=== PATIENT | male | born 1950 | race Caucasian/White ===

== ENCOUNTER 2017-06-12 12:24 | Observation (INO) ==
[2017-06-12 12:54] LABS: Basophils # 0.1 K/mcL (0.0-0.2); Basophils % 0.6 %; Eosinophils # 0.2 K/mcL (0.0-0.6); Eosinophils % 2.2 %; Hematocrit 39.1 % (37.5-50.1); Immature Granulocytes % 0.3 % (0-4); Lymphocytes # 1.5 K/mcL (0.6-4.6); Lymphocytes % 17.5 %; Mean Corpuscular HGB Conc 30.7 g/dL (31.6-35.5); Mean Corpuscular Hemoglobin 26.4 pg (28.0-33.3); Mean Corpuscular Volume 86.1 fL (83.0-100.0); Mean Platelet Volume 8.8 fL (9.4-12.4); Monocytes # 0.8 K/mcL (0.0-1.3); Monocytes % 9.2 %; Neutrophils # 6.1 K/mcL (1.6-8.9); Platelet Count 282 K/mcL (140-400); Red Blood Count 4.54 M/mcL (4.19-5.50); Red Cell Distribution Width 15.1 % (11.5-14.5); Segmented Neutrophils % 70.2 %
[2017-06-12 13:06] LABS: Prothrombin Time 10.2 Seconds (9.4-12.1)
[2017-06-12 13:08] LABS: Activated Partial Thrombo Time 26.8 Seconds (26.0-36.0)
[2017-06-12 13:22] LABS: BUN/Creatinine Ratio 21 (6-26); Blood Urea Nitrogen 21 mg/dL (8-23); Calcium 9.6 mg/dL (8.6-10.3); Carbon Dioxide 31 mEq/L (23-29); Chloride 104 mEq/L (98-107); Glucose 91 mg/dL (70-105); Osmolality,Calculated 293 (280-300); Potassium 4.3 mEq/L (3.5-5.1); Sodium 140 mEq/L (136-145); eGFR For African Americans > 60 (> 60); eGFR For Non-African Americans > 60 (> 60)
--- NOTE | 2017-06-12 13:37 | Emergency Department Note ---
Disposition Clinical Impression: TIA (transient ischemic attack) Qualifiers: Transient cerebral ischemia type: unspecified Qualified Code(s): G45.9 - Transient cerebral ischemic attack, unspecified Disposition: Admitted As Inpatient Condition: Fair Referrals: iT Bolaños MD [Primary Care Provider] - Forms: ED Satisfaction Letter Time of Disposition: 13:54 General Adult HPI - General Chief complaint: ED Neuro Symptoms/Deficit Stated complaint: Neuro S/Sx Time Seen by Provider: 06/12/17 12:42 Source: patient Mode of arrival: ambulatory Limitations: no limitations Nursing Notes Reviewed: Yes Vital Signs Reviewed: Yes - History of Present Illness HPI Narrative: Patient is a 66-year-old male presenting by squad with a complaint of left- sided facial weakness that was first noticed at 5:30 AM this morning. According to the squad the patient's states that she noticed that the patient had left-sided facial weakness and the patient's other relative present in the home states he had a slow speech. Patient is denying any other symptoms such as headache, vision changes, focal neurological deficits to the extremities , loss of sensation, or loss of strength. Denies being on blood thinners at this time however he is taking at 325 mg aspirin daily due to right knee surgery. Pain Scale: 3 - Related Data Home Medications Medication Instructions Recorded Confirmed Amitriptyline [Elavil] 25 mg PO BID 04/21/15 05/23/17 Eletriptan HBr [Relpax] 40 mg PO AD PRN 04/21/15 05/23/17 Metformin HCl [Glucophage Xr] 750 mg PO QPM 04/21/15 05/23/17 Multivitamin/Iron/Folic Acid 1 tab PO QAM 04/21/15 05/23/17 [Centrum Complete Multivit Tab] [place]-3/Dha/Epa/Fish Oil [Fish Oil 1,000 mg PO BID 08/16/15 05/23/17 Dr 500 mg Softgel] Omeprazole [PriLOSEC] 20 mg PO BID 08/16/15 05/23/17 Exenatide Microspheres [Bydureon] 2 mg SQ SA 01/03/16 05/23/17 Simvastatin [Zocor] 20 mg PO QPM 01/03/16 05/23/17 Allopurinol [Zyloprim 100 MG] 100 mg PO DAILY 02/14/17 05/23/17 Turmeric Root Extract [Turmeric] 500 mg PO DAILY 02/14/17 05/23/17 Ascorbate Calcium [Vitamin C] 500 mg PO DAILY 05/23/17 05/23/17 Aspirin [Lo-Dose Aspirin EC] 81 mg PO DAILY 05/23/17 05/23/17 Cyanocobalamin (Vitamin B-12) 100 mcg PO DAILY 05/23/17 05/23/17 [Vitamin B-12] DULoxetine [Cymbalta] 30 mg PO DAILY 05/23/17 05/23/17 Ferrous Sulfate [Iron] 325 mg PO DAILY 05/23/17 05/23/17 Losartan Potassium [Cozaar] 50 mg PO DAILY 05/23/17 05/23/17 Tizanidine HCl [Zanaflex] 2 mg PO HS PRN 05/23/17 05/23/17 Previous Rx's Medication Instructions Recorded Aspirin Enteric Coated [Aspirin EC] 325 mg PO BID #20 tablet. 05/23/17 OxyCODONE Immed Rel [Roxicodone 5 5 mg PO Q4HR PRN #24 tablet 05/23/17 MG] Allergies Allergy/AdvReac Type Severity Reaction Status Date / Time tramadol AdvReac Itching Verified 05/23/17 07:12 Narcotics AdvReac Itching Uncoded 04/21/15 19:44 All systems ED: reviewed and negative except as stated. Review of Systems: As Per HPI Constitutional: Denies: fever, chills Eyes: Denies: vision change ENT ED: Denies: throat pain, congestion Cardiovascular: Denies: chest pain, palpitations Respiratory: Denies: cough, dyspnea, wheezes Gastrointestinal: Denies: abdominal pain Genitourinary: Denies: dysuria Musculoskeletal: Denies: back pain, neck pain Neurological: Reports: other (left sided facial droop). Denies: headache, weakness, numbness, paresthesias, confusion, abnormal gait Past Medical History - Past Medical History Attestation: Yes The following information was validated with the patient. Medical history: Reports: arthritis, diabetes, GERD, hyperlipidemia, hypertension, kidney stones, migraine Surgical history: Reports: appendectomy, other Psychiatric history: Reports: no psych history - Social History Smoking Status: Former smoker Smokeless Tobacco Status: No Alcohol use: Reports: occasionally Drug use: Reports: none Physical Exam CONSTITUTIONAL: Alert and oriented X3, well-nourished, well appearing, in no apparent distress HEAD: Normocephalic; atraumatic. EYES: PERRL, no scleral icterus. NOSE: The nose is normal in appearance without rhinorrhea RESP: Normal chest excursion with respiration; breath sounds clear and equal bilaterally; no wheezes, rhonchi, or rales CARD: Regular rhythm, without murmurs, rub or gallop ABD: Non-distended; non-tender, soft,without rigidity, rebound or guarding SKIN: Normal for age and race; warm and dry; no apparent lesions NEUROLOGICAL: Patient is alert and oriented times three. Cranial nerves III- XII are intact, except for facial droop on the left side mostly affecting left side of mouth. Sensory and motor functions are intact. Strength is 5/5 for flexion and extension in all 4 extremities. Patellar DTRS are equal and intact. Finger to nose testing is equal and normal bilaterally. No other focal neurological deficits on exam. - General Limitations: no limitations General appearance: alert, in no apparent distress Course Course Narrative: Patient presented with last known well being 5:30 AM this morning with complaining of left-sided face drooping affecting his speech. His symptoms appear to have been improving over time. Stroke alert was called patient was brought back to the emergency department immediately. Plan is to do a stroke workup of the patient will consult neurology. Patient's NIH stroke scale score for me is a one due to the patient's very mild left sided mouth paralysis. RICU telecom was performed and Dr. Garland the neurologist for [facility] evaluated the patient gave him an NIH stroke scale of 0. She recommended admission for TIA workup. Patient is not a candidate for TPA at this time due to his improving status and also the length of time since last known well. - Reevaluation(s) Reevaluation #1: I discussed the patient's case with the neurologist manager of organizational development Dr. Hand discussed admission to the hospital for TIA. He recommended starting Plavix at this time and decrease in the patient's daily aspirin from 325 mg to 81 mg. He agrees to consult on the case and they will admit the patient to the hospitalist manager of organizational development Dr. Curtis. Time: 13:45 Reevaluation #2: Dr. Curtis agrees to accept the patient. Time: 13:49 Vital Signs Temperature 97.8 F 06/12/17 12:26 Pulse Rate 75 06/12/17 12:26 Respiratory Rate 18 06/12/17 12:26 Blood Pressure 162/89 06/12/17 12:26 O2 Sat by Pulse Oximetry 98 06/12/17 12:26 Temperature 97.8 F 06/12/17 12:26 Pulse Rate 77 06/12/17 13:33 Respiratory Rate 16 06/12/17 13:33 Blood Pressure 145/84 06/12/17 13:33 O2 Sat by Pulse Oximetry 98 06/12/17 12:26 Oxygen Delivery Oxygen Delivery Room Air Medical Decision Making - Medical Records Medical records reviewed: Yes I reviewed the patient's medical records. - Lab Data Lab results reviewed: Yes I reviewed the patient's lab results. Result diagrams: 06/12/17 12:46 06/12/17 12:46 Lab Results 06/12/17 06/12/17 06/12/17 Range/Units 12:27 12:46 12:46 WBC 8.7 (4.3-11.1) K/mcL RBC 4.54 (4.19-5.50) M/mcL Hgb 12.0 L (12.9-16.9) g/dL Hct 39.1 (37.5-50.1) % MCV 86.1 (83.0-100.0) fL MCH 26.4 L (28.0-33.3) pg MCHC 30.7 L (31.6-35.5) g/dL RDW 15.1 H (11.5-14.5) % Plt Count 282 (140-400) K/mcL MPV 8.8 L (9.4-12.4) fL Immature Gran % 0.3 (0-4) % Seg Neutrophils % 70.2 % Lymphocytes % 17.5 % Monocytes % 9.2 % Eosinophils % 2.2 % Basophils % 0.6 % Neutrophils # 6.1 (1.6-8.9) K/mcL Lymphocytes # 1.5 (0.6-4.6) K/mcL Monocytes # 0.8 (0.0-1.3) K/mcL Eosinophils # 0.2 (0.0-0.6) K/mcL Basophils # 0.1 (0.0-0.2) K/mcL PT 10.2 (9.4-12.1) Seconds INR 1.0 APTT 26.8 (26.0-36.0) Seconds Sodium (136-145) mEq/L Potassium (3.5-5.1) mEq/L Chloride (98-107) mEq/L Carbon Dioxide (23-29) mEq/L BUN (8-23) mg/dL Creatinine (0.70-1.30) mg/dL Est GFR ( Amer) (> 60) Est GFR (Non-Af Amer) (> 60) BUN/Creatinine Ratio (6-26) Glucose (70-105) mg/dL POC Glucose 91 H (58-89) Calculated Osmolality (280-300) Calcium (8.6-10.3) mg/dL Troponin I (< 0.04) ng/mL 06/12/17 06/12/17 Range/Units 12:46 12:46 WBC (4.3-11.1) K/mcL RBC (4.19-5.50) M/mcL Hgb (12.9-16.9) g/dL Hct (37.5-50.1) % MCV (83.0-100.0) fL MCH (28.0-33.3) pg MCHC (31.6-35.5) g/dL RDW (11.5-14.5) % Plt Count (140-400) K/mcL MPV (9.4-12.4) fL Immature Gran % (0-4) % Seg Neutrophils % % Lymphocytes % % Monocytes % % Eosinophils % % Basophils % % Neutrophils # (1.6-8.9) K/mcL Lymphocytes # (0.6-4.6) K/mcL Monocytes # (0.0-1.3) K/mcL Eosinophils # (0.0-0.6) K/mcL Basophils # (0.0-0.2) K/mcL PT (9.4-12.1) Seconds INR APTT (26.0-36.0) Seconds Sodium 140 (136-145) mEq/L Potassium 4.3 (3.5-5.1) mEq/L Chloride 104 (98-107) mEq/L Carbon Dioxide 31 H (23-29) mEq/L BUN 21 (8-23) mg/dL Creatinine 0.98 (0.70-1.30) mg/dL Est GFR ( Amer) > 60 (> 60) Est GFR (Non-Af Amer) > 60 (> 60) BUN/Creatinine Ratio 21 (6-26) Glucose 91 (70-105) mg/dL POC Glucose (58-89) Calculated Osmolality 293 (280-300) Calcium 9.6 (8.6-10.3) mg/dL Troponin I < 0.03 (< 0.04) ng/mL - Radiology Data Radiology results reviewed: Yes I reviewed the patient's radiology results. Head CT 06/12/17 12:42 IMPRESSION: No acute intracranial abnormality. Findings were discussed with Judith Barbour at 1:05 pm on 06/12/2017. D/ / Kylee Barragan MD / Kylee Barragan MD Interpreting Provider: Kylee Barragan MD - EKG Data EKG #1 EKG attestation: Yes I reviewed and interpreted this EKG. EKG results narrative: EKG done at 12:57 shows sinus rhythm at a rate of 67 bpm. Normal axis. AK is 157, QRS is 106, QT is 375, and QTc is 390 these are within normal limits. No signs of ST elevation, depression or Q waves and this is unchanged when compared to EKG done on 05/17/2017.
--- NOTE | 2017-06-12 13:39 | Emergency Department Note ---
START Narrative - START START: I examined this patient and my medical decision-making was reviewed with the Resident Physician. I agree with the documented findings, disposition and treatment plan as described except to the extent set forth below. Patient emergency department complaining of slurred speech and facial droop. After nurses spoke with the family it appears as last time was about 5:30 this morning. Patient states he feels like his speech is also little bit. On examination he is awake and alert. He does have some mild slurring but he does not have any aphasia. Mild droop of the mouth that corrects with smile. Plan. Stroke alert was called and telestroke performed. Patient TPA candidate secondary to mild symptoms. We will admit here for further stroke workup.
[2017-06-12] MEDS: *HR* OxyCODONE Immed Rel 5 MG TABLET PO PRN (20:11)
--- NOTE | 2017-06-12 20:18 | Internal Med History&Physical ---
<Polly Castañeda - Last Filed: 06/12/17 20:52> Date of Encounter: 06/12/17 Time of Encounter: 20:09 Assessment and Plan (1) TIA (transient ischemic attack) Current visit: Yes Status: Acute The patient's last well known was at 530am today. Patient stated that his noted that he had slurred speech and left facial weakness at around 8am this morning. Patient is comfortable and in no distress. He denies any weakness or numbness or tingling. The patient does not have any slurred speech on exam. Neurological exam is normal and intact. Head CT is negative and showed no acute intracranial abnormalities. Dr. Garland the neurologist for [facility] evaluated the patient gave him an NIH stroke scale of 0. She recommended admission for TIA workup. Patient is not a candidate for TPA at this time due to his improving status and also the length of time since last known well.The neurologist international bank manager , Dr. Hand, recommends Plavix at this time and to decrease in the patient's daily aspirin from 325 mg to 81 mg. Time spent on admission: 40 minutes. Qualifiers: Transient cerebral ischemia type: unspecified Qualified Code(s): G45.9 - Transient cerebral ischemic attack, unspecified (2) Hypertension Current visit: No Status: Chronic Continue home medications. Qualifiers: Hypertension type: unspecified secondary hypertension Qualified Code(s): I15.9 - Secondary hypertension, unspecified; I15 - Secondary hypertension (3) Diabetes Current visit: No Status: Chronic Qualifiers: Diabetes mellitus type: type 2 Diabetes mellitus complication status: without complication Diabetes mellitus emt intermediate insulin use: unspecified snf insulin use status Qualified Code(s): E11.9 - Type 2 diabetes mellitus without complications (4) Status post right knee replacement Current visit: No Status: Acute Internal Medicine - H&P: HPI Chief complaint: Left facial weakness and slurred speech Admitted From: Emergency Dept History of present illness: Mr. Cuadra is a 66 year old male with a past medical history of hypertension , diabetes, and a total right knee surgery on May 23 who presents complaining of left facial weakness and slurred speech per and family. The patient states that he woke up around 5:30 AM this morning to take his morning medications without any difficulty. The patient said that around 8 am this morning was when his told him he had slurred speech. He stated that he did not notice anything wrong with his speech but admitted that he "felt drunk" because he felt "wobbly" with his cane. He denies any facial weakness at the time but he said his noticed it. Patient admits stacking the recent total right knee surgery on May 23 without any competitions. The patient was prescribed 325 mg of aspirin and pain medications. Patient denies any recent trauma, illness, or travel. He denies any headaches, vision changes , facial weakness, chest pain, shortness of breath, abdominal pain, difficulty urinating, any changes in his bowel movements, and any numbness or tingling, and any weaknesses. Past Med Surg Social Fam HX - Past Medical History Medical history: arthritis, diabetes (Non-insulin dependent), GERD, hyperlipidemia, hypertension, kidney stones, migraine Psychiatric history: no psych history - Past Surgical History Surgical History: appendectomy, other - Social History Smoking Status: Former smoker Smokeless Tobacco Status: No Alcohol use: occasionally Drug use: none - Family History Father Living Status: Internal Medicine - H&P: Meds Amitriptyline [Elavil] 25 mg PO BID 04/21/15 [History] Eletriptan HBr [Relpax] 40 mg PO AD PRN 04/21/15 [History] Metformin HCl [Glucophage Xr] 750 mg PO QPM 04/21/15 [History] Multivitamin/Iron/Folic Acid [Centrum Complete Multivit Tab] 1 tab PO QAM [History] [place]-3/Dha/Epa/Fish Oil [Fish Oil Dr 500 mg Softgel] 1,000 mg PO BID 08/16/15 [ History] Omeprazole [PriLOSEC] 20 mg PO BID 08/16/15 [History] Exenatide Microspheres [Bydureon] 2 mg SQ SA 01/03/16 [History] Simvastatin [Zocor] 20 mg PO QPM 01/03/16 [History] Allopurinol [Zyloprim 100 MG] 100 mg PO DAILY PRN 02/14/17 [History] Turmeric Root Extract [Turmeric] 500 mg PO DAILY 02/14/17 [History] Ascorbate Calcium [Vitamin C] 500 mg PO DAILY 05/23/17 [History] Aspirin Enteric Coated [Aspirin EC] 325 mg PO BID #20 tablet. 05/23/17 [Rx] Cyanocobalamin (Vitamin B-12) [Vitamin B-12] 100 mcg PO DAILY 05/23/17 [History] DULoxetine [Cymbalta] 30 mg PO DAILY 05/23/17 [History] Ferrous Sulfate [Iron] 325 mg PO DAILY 05/23/17 [History] Losartan Potassium [Cozaar] 50 mg PO DAILY 05/23/17 [History] OxyCODONE Immed Rel [Roxicodone 5 MG] 5 mg PO Q4HR PRN #24 tablet 05/23/17 [Rx] Tizanidine HCl [Zanaflex] 2 mg PO HS PRN 05/23/17 [History] 3 Allergy/AdvReac Type Severity Reaction Status Date / Time tramadol AdvReac Itching Verified 06/12/17 14:01 Narcotics AdvReac Itching Uncoded 04/21/15 19:44 All Systems PM: A 10-system review of systems was performed and is negative for pertinent findings except as documented above in the HPI. - Constitutional Vitals: Temp Pulse Resp BP Pulse Ox 98.1 F 79 16 155/82 98 06/12/17 19:01 06/12/17 19:01 06/12/17 19:01 06/12/17 19:01 06/12/17 19:01 General appearance: Present: A&O X 3, pleasant. Absent: no acute distress - Head Head exam: Present: atraumatic, normocephalic - Eye Eye exam: Present: EOMI, normal appearance, PERRL. Absent: conjunctival injection Pupils: Present: PERRL - Neck Neck exam general surgery: Present: supple, trachea midline. Absent: lymphadenopathy, tenderness - Respiratory Respiratory exam: Present: CTAB. Absent: accessory muscle use, rales, rhonchi, wheezes - Cardiovascular Cardiovascular exam: Present: RRR, +S1, +S2. Absent: diastolic murmur, gallop, rubs, systolic murmur - GI/Abdominal GI/Abdominal exam: Present: normal bowel sounds, soft, no peritoneal signs. Absent: distended, tenderness - Extremities Exam Extremities exam: Present: warm, radial pulses palpable and symmetrical. Absent : calf tenderness, cyanotic, pedal edema - Neurological Exam Neurological exam: Present: alert, CN II-XII intact, oriented X3, no focal deficits, strengths equal and symetr throughout. Absent: motor sensory deficit , pronater drift, facial droop, speech deficit - Expanded Neurological Exam Neurological exam expanded: Present: tremor (mild tremor in upper extremities on exam. ). Absent: expressive aphasia Patient oriented to: Present: person, place, time Speech: Absent: slurred Cranial Nerves: EOM's intact PM: Normal, gag reflex PM: Normal, tongue deviation PM: Normal Cerebellar function: finger to nose: Normal Neuro motor strength exam: LUE: 5, RUE: 5, LLE: 5, RLE: 5 - Skin Skin exam: Present: dry, intact Internal Med - H&P Results - Labs CBC & Chem 7: 06/12/17 12:46 06/12/17 12:46 <Tj Bates H - Last Filed: 06/12/17 21:07> Date of Encounter: 06/12/17 Internal Medicine - H&P: HPI History of present illness: Mr. Cuadra is a 66 year old male All Systems PM: A 10-system review of systems was performed and is negative for pertinent findings except as documented above in the HPI. - Constitutional Vitals: Temp Pulse Resp BP Pulse Ox 98.1 F 79 16 155/82 98 06/12/17 19:01 06/12/17 19:01 06/12/17 19:01 06/12/17 19:01 06/12/17 19:01 Internal Med - H&P Results - Labs CBC & Chem 7: 06/12/17 12:46 06/12/17 12:46 - Attending Attestation Possible TIA MRI of the brain, echocardiogram, carotid ultrasound, lipid panel, subcutaneous heparin for DVT prophylaxis. Patient will be admitted for observation Neurology recommendations appreciated Continue simvastatin I examined this patient and my medical decision-making was reviewed with the Resident Physician. I agree with the documented findings, disposition and treatment plan as described except to the extent set forth below.
[2017-06-12] MEDS ORDERED: Acetaminophen 325 MG TABLET PO PRN (20:27)
[2017-06-12] MEDS ORDERED: Ondansetron ODT 4 MG TAB.RAPDIS SL PRN (20:27)
[2017-06-12] MEDS ORDERED: Naloxone 0.4 MG/ML INJ IVP PRN (20:27)
[2017-06-12] MEDS ORDERED: *HR* OxyCODONE Immed Rel 5 MG TABLET PO PRN (20:30)
[2017-06-12] MEDS ORDERED: Eletriptan Hbr [Relpax] 40 MG PO PRN (20:30)
[2017-06-12] MEDS ORDERED: tiZANidine 4 MG TABLET PO PRN (20:30)
[2017-06-12] MEDS ORDERED: D5% in Water 1,000 ML IVC PRN (20:46)
[2017-06-12] MEDS ORDERED: *HR* Dextrose 50 % in Water (Syg) 50 ML SYRINGE IVP PRN (20:46)
[2017-06-12] MEDS ORDERED: Dextrose Gel 15 GM/37.5 ML TUBE PO PRN ×2 (20:46)
[2017-06-12] MEDS: *HR* Heparin 5,000 UNIT/ML VIAL SQ SCH (22:34)
[2017-06-12] MEDS: Insulin LISPRO 300 UNITS/3 ML VIAL SQ SCH (22:36)
[2017-06-12] MEDS: FISH OIL 1000 MG PO SCH (22:36)
[2017-06-13] MEDS: *HR* OxyCODONE Immed Rel 5 MG TABLET PO PRN ×5 (00:06→22:19)
[2017-06-13] MEDS: *HR* Heparin 5,000 UNIT/ML VIAL SQ SCH ×2 (05:34→17:37)
[2017-06-13 05:52] LABS: Basophils % 0.5 %; Eosinophils # 0.2 K/mcL (0.0-0.6); Eosinophils % 2.8 %; Hematocrit 36.8 % (37.5-50.1); Hemoglobin 11.6 g/dL (12.9-16.9); Immature Granulocytes % 0.5 % (0-4); Lymphocytes # 1.4 K/mcL (0.6-4.6); Lymphocytes % 22.5 %; Mean Corpuscular HGB Conc 31.5 g/dL (31.6-35.5); Mean Corpuscular Hemoglobin 26.3 pg (28.0-33.3); Mean Corpuscular Volume 83.4 fL (83.0-100.0); Mean Platelet Volume 9.2 fL (9.4-12.4); Monocytes # 0.6 K/mcL (0.0-1.3); Neutrophils # 3.8 K/mcL (1.6-8.9); Platelet Count 300 K/mcL (140-400); Red Blood Count 4.41 M/mcL (4.19-5.50); Red Cell Distribution Width 14.6 % (11.5-14.5); Segmented Neutrophils % 63.7 %
[2017-06-13 05:57] LABS: Activated Partial Thrombo Time 27.9 Seconds (26.0-36.0)
[2017-06-13 06:05] LABS: BUN/Creatinine Ratio 17 (6-26); Blood Urea Nitrogen 17 mg/dL (8-23); Calcium 9.6 mg/dL (8.6-10.3); Carbon Dioxide 34 mEq/L (23-29); Chloride 100 mEq/L (98-107); Glucose 83 mg/dL (70-105); Osmolality,Calculated 291 (280-300); Phosphorous 4.5 mg/dL (2.7-4.5); Potassium 4.1 mEq/L (3.5-5.1); Sodium 140 mEq/L (136-145); eGFR For African Americans > 60 (> 60); eGFR For Non-African Americans > 60 (> 60)
[2017-06-13 06:06] LABS: Chol/HDL Ratio 3.4 (0-4.9)
[2017-06-13] MEDS: Insulin LISPRO 300 UNITS/3 ML VIAL SQ SCH ×4 (07:35→22:16)
[2017-06-13] MEDS: FISH OIL 1000 MG PO SCH ×2 (09:25→22:19)
[2017-06-13] MEDS: Ascorbic Acid 500 MG TABLET PO SCH (09:25)
[2017-06-13] MEDS: Turmeric Root Extract [Turmeric] 500 MG PO SCH (09:25)
[2017-06-13] MEDS: Aspirin 81 MG TAB.CHEW PO SCH (09:25)
[2017-06-13] MEDS: CYANOCOBALAMIN 100 MCG PO SCH (09:25)
[2017-06-13] MEDS: Multivit/Ca/Min/Fe/FA 1 TAB TABLET PO SCH (09:25)
--- NOTE | 2017-06-13 10:39 | Neurology - Consult Note ---
<Glen Yarbrough - Last Filed: 06/13/17 11:36> Date of Encounter: 06/13/17 Time of Encounter: 10:36 Assessment and Plan (1) TIA (transient ischemic attack) Current Visit: Yes Status: Acute patient arrived with facial drooping and slurred speech that has since resolved. was evaluated by [facility] neurology, and determined not to be a TPA candidate due to unknown duration of symptoms and improvement of symptoms prelim carotid duplex: non stenotic plaque. Head CT negative lipid panel reviewed Plan: continue ASA, plavix, statin MRI brain pending his 10 year ASCVD risk is 26%, recommend a high intensity statin Qualifiers: Transient cerebral ischemia type: unspecified Qualified Code(s): G45.9 - Transient cerebral ischemic attack, unspecified (2) Hypertension Current Visit: No Status: Chronic per primary Qualifiers: Hypertension type: essential hypertension Qualified Code(s): I10 - Essential (primary) hypertension (3) Diabetes Current Visit: No Status: Chronic per primary Qualifiers: Diabetes mellitus type: type 2 Diabetes mellitus complication status: without complication Diabetes mellitus exterminator helper insulin use: unspecified exterminator helper insulin use status Qualified Code(s): E11.9 - Type 2 diabetes mellitus without complications History of Present Illness Chief complaint: facial drooping, slurred speech. HPI: Mr. Cuadra is a 66 year old male with PMHx of DM, HTN, recent right total knee replacement on May 23, GERD, HLD. patient was brought to [facility] yesterday by his with chief complaint of slurred speech and facial drooping since earlier that morning. patient also states that he felt "drunk" and "wobbly." He was evaluated by neurology at [facility] and it was determined that he is not a candidate for TPA because of unknown duration of symptoms and improving status. today, patient denies nausea, vomiting, diarrhea, fever, chills, chest pain, shortness of breath, weakness. Past Med Surg Social Fam HX - Past Medical History Medical history: arthritis, diabetes (Non-insulin dependent), GERD, hyperlipidemia, hypertension, kidney stones, migraine Psychiatric history: no psych history - Past Surgical History Surgical History: appendectomy, other - Social History Smoking Status: Former smoker Smokeless Tobacco Status: No Alcohol use: occasionally Drug use: none - Family History Father Living Status: Medications and Allergies Amitriptyline [Arronl] 25 mg PO BID 04/21/15 [History] Eletriptan HBr [Relpax] 40 mg PO AD PRN 04/21/15 [History] Metformin HCl [Glucophage Xr] 750 mg PO QPM 04/21/15 [History] Multivitamin/Iron/Folic Acid [Centrum Complete Multivit Tab] 1 tab PO QAM [History] [place]-3/Dha/Epa/Fish Oil [Fish Oil Dr 500 mg Softgel] 1,000 mg PO BID 08/16/15 [ History] Omeprazole [PriLOSEC] 20 mg PO BID 08/16/15 [History] Exenatide Microspheres [Bydureon] 2 mg SQ SA 01/03/16 [History] Simvastatin [Zocor] 20 mg PO QPM 01/03/16 [History] Allopurinol [Zyloprim 100 MG] 100 mg PO DAILY PRN 02/14/17 [History] Turmeric Root Extract [Turmeric] 500 mg PO DAILY 02/14/17 [History] Ascorbate Calcium [Vitamin C] 500 mg PO DAILY 05/23/17 [History] Aspirin Enteric Coated [Aspirin EC] 325 mg PO BID #20 tablet.dr 05/23/17 [Rx] Cyanocobalamin (Vitamin B-12) [Vitamin B-12] 100 mcg PO DAILY 05/23/17 [History] DULoxetine [Cymbalta] 30 mg PO DAILY 05/23/17 [History] Ferrous Sulfate [Iron] 325 mg PO DAILY 05/23/17 [History] Losartan Potassium [Cozaar] 50 mg PO DAILY 05/23/17 [History] OxyCODONE Immed Rel [Roxicodone 5 MG] 5 mg PO Q4HR PRN #24 tablet 05/23/17 [Rx] Tizanidine HCl [Zanaflex] 2 mg PO HS PRN 05/23/17 [History] 3 Allergy/AdvReac Type Severity Reaction Status Date / Time tramadol AdvReac Itching Verified 06/12/17 14:01 Narcotics AdvReac Itching Uncoded 04/21/15 19:44 All Systems: A 10-system review of systems was performed and is negative for pertinent findings except as documented above in the HPI. - Constitutional Constitutional ROS IM: as per HPI Physical Examination - Vital Signs Vital Signs: Initial Vital Signs Temp Pulse Resp BP Pulse Ox 97.8 F 75 18 162/89 98 06/12/17 12:26 06/12/17 12:26 06/12/17 12:26 06/12/17 12:06/12/17 12:26 - Constitutional General appearance: comfortable - Neurologic Sensorimotor examination: intact Detailed motor examination: grossly full strength in all extremities Motor examination - right side: 5/5: deltoids, biceps, triceps, wrist flexion, wrist extension, harvesting supervisor, tibialis Anterior, quadriceps Motor examination - left side: 5/5: deltoids, biceps, triceps, wrist flexion, wrist extension, harvesting supervisor, quadriceps Detailed sensory examination: intact Reflexes: Brachioradialis: 2+, Patella: 2+ (right patellar reflex not checked due to recent knee surgery), Achilles: 2+ Mental Status Examination: awake, alert, oriented to person, oriented to place, oriented to time, follows commands appropriately, answers questions appropriately, no aphasia Cranial nerve examination: PERRL, visual negron intact, corneal reflexes brisk symmetrically, mastication intact, hearing is intact symmetrically Results - Laboratory Findings CBC and BMP: 06/13/17 05:11 06/13/17 05:11 Abnormal lab findings: Abnormal lab results Hgb 11.6 g/dL (12.9-16.9) L 06/13/17 05:11 Hct 36.8 % (37.5-50.1) L 06/13/17 05:11 MCH 26.3 pg (28.0-33.3) L 06/13/17 05:11 MCHC 31.5 g/dL (31.6-35.5) L 06/13/17 05:11 RDW 14.6 % (11.5-14.5) H 06/13/17 05:11 MPV 9.2 fL (9.4-12.4) L 06/13/17 05:11 Carbon Dioxide 34 mEq/L (23-29) H 06/13/17 05:11 Triglycerides 198 mg/dL (< 150) H 06/13/17 05:11 VLDL Cholesterol, Calc 40 mg/dL (< 31) H 06/13/17 05:11 Consult Discharge Plan - Plan Referrals: Ti Bolaños MD [Primary Care Provider] - <Tameka Hand I - Last Filed: 06/13/17 16:45> Date of Encounter: 06/13/17 Assessment and Plan (1) CVA (cerebral vascular accident) Current Visit: Yes Status: Acute Patient was seen and examined, presented with left facial droop and slurring of the speech on examination today he still have left facial droop and slurring of the speech is improved no focal motor deficit. With his history of hypertension hyperlipidemia likely he has suffered a new CVA , he has been evaluated by [facility] telestroke services due to unknown onset of the time of symptoms he was not a TPA candidate. Patient will be getting complete a stroke workup including MRI of the brain, carotid duplex as well as echocardiogram He had been on an aspirin suggested to add Plavix 75 mg daily and decrease aspirin to 81 mg daily. Continue to monitor his blood pressure and blood sugar He should be on fall precautions May benefit from physical therapy evaluation do not do not think that he would require any long-term rehabilitation due to the fact that he did not have any focal motor deficit on his exam. Tameka Hand MD History of Present Illness HPI: Mr. Cuadra is a 66 year old male All Systems: A 10-system review of systems was performed and is negative for pertinent findings except as documented above in the HPI. Physical Examination - Vital Signs Vital Signs: Initial Vital Signs Temp Pulse Resp BP Pulse Ox 97.8 F 75 18 162/89 98 06/12/17 12:26 06/12/17 12:26 06/12/17 12:26 06/12/17 12:26 06/12/17 12:26 Results - Laboratory Findings CBC and BMP: 06/13/17 05:11 06/13/17 05:11 Abnormal lab findings: Abnormal lab results Hgb 11.6 g/dL (12.9-16.9) L 06/13/17 05:11 Hct 36.8 % (37.5-50.1) L 06/13/17 05:11 MCH 26.3 pg (28.0-33.3) L 06/13/17 05:11 MCHC 31.5 g/dL (31.6-35.5) L 06/13/17 05:11 RDW 14.6 % (11.5-14.5) H 06/13/17 05:11 MPV 9.2 fL (9.4-12.4) L 06/13/17 05:11 Carbon Dioxide 34 mEq/L (23-29) H 06/13/17 05:11 POC Glucose 149 (58-89) H 06/13/17 15:30 Triglycerides 198 mg/dL (< 150) H 06/13/17 05:11 VLDL Cholesterol, Calc 40 mg/dL (< 31) H 06/13/17 05:11
--- NOTE | 2017-06-13 10:40 | Electrocardiograph Report ---
[facility] Test Date: 2017-06-12 Pat Name: Delano Cuadra Department: [id number] Room: 3B35 Gender: M Legislative Assistant: : [id number] Requested By: Judith See Order Number: [id number] Reading MD: Ti Bolaños MD Measurements Intervals [place] Rate: 67 P: 53 MS: 157 QRS: 20 QRSD: 106 T: 50 QT: 375 QTc: 390 Interpretive Statements SINUS RHYTHM WITH SINUS ARRHYTHMIA Electronically Signed On 06-13-2017 10:38:16 EST by Ti Bolaños MD
--- NOTE | 2017-06-13 17:26 | Orthopedic Consult Note ---
Date of Encounter: 06/13/17 Time of Encounter: 16:45 Assessment and Plan (1) Status post right knee replacement Current Visit: No Status: Acute Discussed with Dr. Vaughn. Patient to continue work up via medical and neurology teams. With regard to right knee, keep incision clean and dry. Cleanse incision twice daily with soap and water, pat dry, leave open to air. Continue with PT/OT for right knee as indicated. Keep follow up with Dr. Vaughn on 06/20/17 as scheduled. Thank you and please reach out if we may be of any further assistance. History of Present Illness Chief complaint: s/p right total knee replacement HPI: Mr. Cuadra is a 66 year old male s/p left knee arthroscopy partial lateral menisectomy, right total knee replacement on 05/23/[address] Vaughn. He presented to ED on 06/12/17 after home health therapist noted slurred speech and difficulty communicating. Patient presently being worked up for TIA. In reviewing staff conversations with patient's as recorded in [facility], she had stated concern regarding whether patient took too much Tizanidine. Patient denies any changes to medication regimen or progress until yesterday morning. He admits at present that he is confused about how long he has been at [place]. He denies any loss of balance or altered sensation. He denies noting altered speech. On exam patient is resting comfortably in bed and is picking at right knee bandage. He is alert and oriented to person and place. Noted with his speech is slight left eye lid lag and left sided mouth weakness. His speech is regular rate and rhythm and is easily understood. With regard to his right knee, bandage was removed by this provider. Incision is clean, dry and intact. Right knee ROM is improving. No calf tenderness. Neurovascularly intact. Patient asking about correlation between this event and recent surgery. Discussed his risk factors and timing and we have no way to calculate whether the surgery is the causative agent. We did discuss that he states he has been compliant with the Aspirin therapy for prophylaxis for blood clots and has tried to stay hydrated and be active. Patient verbalized understanding. Discussed with Dr. Vaughn. Patient to continue work up via medical and neurology teams. With regard to right knee, keep incision clean and dry. Cleanse incision twice daily with soap and water, pat dry, leave open to air. Continue with PT/OT for right knee as indicated. Keep follow up with Dr. Vaughn on 06/20/17 as scheduled. Thank you and please reach out if we may be of any further assistance. Past Med Surg Social Fam HX - Past Medical History Medical history: arthritis, diabetes (Non-insulin dependent), GERD, hyperlipidemia, hypertension, kidney stones, migraine Psychiatric history: no psych history - Past Surgical History Surgical History: appendectomy, other - Social History Smoking Status: Former smoker Smokeless Tobacco Status: No Alcohol use: occasionally Drug use: none - Family History Father Living Status: Medications and Allergies Amitriptyline [Elavil] 25 mg PO BID 04/21/15 [History] Eletriptan HBr [Relpax] 40 mg PO AD PRN 04/21/15 [History] Metformin HCl [Glucophage Xr] 750 mg PO QPM 04/21/15 [History] Multivitamin/Iron/Folic Acid [Centrum Complete Multivit Tab] 1 tab PO QAM [History] [place]-3/Dha/Epa/Fish Oil [Fish Oil Dr 500 mg Softgel] 1,000 mg PO BID 08/16/15 [ History] Omeprazole [PriLOSEC] 20 mg PO BID 08/16/15 [History] Exenatide Microspheres [Bydureon] 2 mg SQ SA 01/03/16 [History] Simvastatin [Zocor] 20 mg PO QPM 01/03/16 [History] Allopurinol [Zyloprim 100 MG] 100 mg PO DAILY PRN 02/14/17 [History] Turmeric Root Extract [Turmeric] 500 mg PO DAILY 02/14/17 [History] Ascorbate Calcium [Vitamin C] 500 mg PO DAILY 05/23/17 [History] Aspirin Enteric Coated [Aspirin EC] 325 mg PO BID #20 tablet. 05/23/17 [Rx] Cyanocobalamin (Vitamin B-12) [Vitamin B-12] 100 mcg PO DAILY 05/23/17 [History] DULoxetine [Cymbalta] 30 mg PO DAILY 05/23/17 [History] Ferrous Sulfate [Iron] 325 mg PO DAILY 05/23/17 [History] Losartan Potassium [Cozaar] 50 mg PO DAILY 05/23/17 [History] OxyCODONE Immed Rel [Roxicodone 5 MG] 5 mg PO Q4HR PRN #24 tablet 05/23/17 [Rx] Tizanidine HCl [Zanaflex] 2 mg PO HS PRN 05/23/17 [History] 3 Allergy/AdvReac Type Severity Reaction Status Date / Time tramadol AdvReac Itching Verified 06/12/17 14:01 Narcotics AdvReac Itching Uncoded 04/21/15 19:44 All Systems Reviewed: A 10-system review of systems was performed and is negative for pertinent findings except as documented above in the HPI. Physical Exam - Constitutional Vitals: Temp Pulse Resp BP Pulse Ox 98.0 F 84 20 147/80 92 06/13/17 15:31 06/13/17 15:31 06/13/17 15:31 06/13/17 15:31 06/13/17 15:31 Results - Labs Result Diagrams: 06/13/17 05:11 06/13/17 05:11 Labs: Abnormal lab results Hgb 11.6 g/dL (12.9-16.9) L 06/13/17 05:11 Hct 36.8 % (37.5-50.1) L 06/13/17 05:11 MCH 26.3 pg (28.0-33.3) L 06/13/17 05:11 MCHC 31.5 g/dL (31.6-35.5) L 06/13/17 05:11 RDW 14.6 % (11.5-14.5) H 06/13/17 05:11 MPV 9.2 fL (9.4-12.4) L 06/13/17 05:11 Carbon Dioxide 34 mEq/L (23-29) H 06/13/17 05:11 POC Glucose 149 (58-89) H 06/13/17 15:30 Triglycerides 198 mg/dL (< 150) H 06/13/17 05:11 VLDL Cholesterol, Calc 40 mg/dL (< 31) H 06/13/17 05:11 H & H 06/13/17 Range/Units 05:11 Hgb 11.6 L (12.9-16.9) g/dL Hct 36.8 L (37.5-50.1) % All other labs normal. Consult Discharge Plan - Plan Referrals: Ti Bolaños MD [Primary Care Provider] -
--- NOTE | 2017-06-13 18:26 | Internal Med Progress Note ---
Date of Encounter: 06/13/17 Time of Encounter: 11:00 - Assessment and plan (1) TIA (transient ischemic attack) Current Visit: Yes Status: Acute Assessment and plan: -Patient with slurred speech and facial droop -Workup pending; neurology consulted and appreciate recommendations. Qualifiers: Transient cerebral ischemia type: unspecified Qualified Code(s): G45.9 - Transient cerebral ischemic attack, unspecified (2) Status post right knee replacement Current Visit: No Status: Acute Assessment and plan: -Orthopedics following. Appreciate recommendations (3) DVT prophylaxis Current Visit: No Status: Acute Assessment and plan: Subcutaneous heparin - Subjective Interval history: Patient with left sided facial droop with slurring of speech - Constitutional Vitals: Temp Pulse Resp BP Pulse Ox 98.0 F 84 20 147/80 92 06/13/17 15:31 06/13/17 15:31 06/13/17 15:31 06/13/17 15:31 06/13/17 15:31 General appearance: Present: A&O X 3, pleasant. Absent: no acute distress - Respiratory Respiratory exam: Present: CTAB. Absent: accessory muscle use, rales, rhonchi, wheezes - Cardiovascular Cardiovascular exam: Present: RRR, +S1, +S2. Absent: diastolic murmur, gallop, rubs, systolic murmur - Expanded Neurological Exam Speech: Present: slurred Internal Medicine: Result - Labs CBC & Chem 7: 06/13/17 05:11 06/13/17 05:11 Labs: Short CBC 06/13/17 Range/Units 05:11 WBC 6.0 (4.3-11.1) K/mcL Hgb 11.6 L (12.9-16.9) g/dL Hct 36.8 L (37.5-50.1) % Plt Count 300 (140-400) K/mcL Neutrophils # 3.8 (1.6-8.9) K/mcL BMP 06/13/17 05:11 Sodium 140 Potassium 4.1 Chloride 100 Carbon Dioxide 34 H BUN 17 Creatinine 0.99 Glucose 83 Calcium 9.6 - ABG Interpretation ABG results: PT/INR, D-dimer PT 11.0 Seconds (9.4-12.1) 06/13/17 05:11 - Impressions Impressions Echocardiogram 06/13/17 20:50 Impressions: LVEF 55%. Mild left ventricular diastolic dysfunction. Dilated RV with normal function. Mild mitral regurgitation. No pulmonary hypertension. No PFO with saline contrast injection. Left Ventricular Wall Motion: Rest Echo Findings All wall segments showed normal motion. Findings: Study Quality * Technically adequate exam. ECG Findings * Normal sinus rhythm. Left Ventricle * LVEF 55%. * Normal LV chamber size, wall thickness and function. * Mild left ventricular diastolic dysfunction. Right Ventricle * Dilated RV with normal function. Left Atrium * Normal left atrial size. Right Atrium * Normal right atrial size. Aortic Valve * No aortic regurgitation. * Aortic valve not well visualized. * No aortic stenosis. Mitral Valve * Normal mitral valve structure. * No mitral stenosis. * Mild mitral regurgitation. Tricuspid Valve * Normal tricuspid valve structure. * Trace tricuspid regurgitation. Pulmonic Valve * Pulmonic valve is not well visualized. * No pulmonic stenosis. * No pulmonic regurgitation. Pulmonary Artery * Pulmonary artery not well visualized. Aorta * Normally sized aortic root. Pericardium * There is no pericardial effusion present. Interatrial Septum * No evidence of PFO with agitated saline contrast. IVC * The IVC is not well evaluated. Consult Discharge Plan - Plan Referrals: Ti Bolaños MD [Primary Care Provider] -
[2017-06-14] MEDS: *HR* OxyCODONE Immed Rel 5 MG TABLET PO PRN ×2 (04:54→08:54)
[2017-06-14] MEDS: *HR* Heparin 5,000 UNIT/ML VIAL SQ SCH (06:25)
[2017-06-14] MEDS: Insulin LISPRO 300 UNITS/3 ML VIAL SQ SCH ×2 (08:39→12:52)
[2017-06-14] MEDS: CYANOCOBALAMIN 100 MCG PO SCH (08:40)
[2017-06-14] MEDS: FISH OIL 1000 MG PO SCH (08:40)
[2017-06-14] MEDS: Turmeric Root Extract [Turmeric] 500 MG PO SCH (08:40)
[2017-06-14] MEDS: Multivit/Ca/Min/Fe/FA 1 TAB TABLET PO SCH (08:44)
[2017-06-14] MEDS: Ascorbic Acid 500 MG TABLET PO SCH (08:44)
[2017-06-14] MEDS: Aspirin 81 MG TAB.CHEW PO SCH (08:44)
--- NOTE | 2017-06-14 09:56 | Neurology Progress Note ---
<Glen Yarbrough - Last Filed: 06/14/17 09:54> Date of Encounter: 06/14/17 Time of Encounter: 09:54 Assessment and Plan (1) TIA (transient ischemic attack) Current Visit: Yes Status: Acute patient arrived with facial drooping and slurred speech that has since resolved. was evaluated by [facility] neurology, and determined not to be a TPA candidate due to unknown duration of symptoms and improvement of symptoms prelim carotid duplex: non stenotic plaque. Head CT negative lipid panel reviewed Echo from 06/13/17 showed LVEF 55%, mild diastolic dysfunction, dilated RV with normal function, mild mitral regurg, no pulmonary HTN, no PFO. MRI brain within normal limits. Plan: continue ASA, plavix, statin MRI brain pending his 10 year ASCVD risk is 26%, recommend a high intensity statin Qualifiers: Transient cerebral ischemia type: unspecified Qualified Code(s): G45.9 - Transient cerebral ischemic attack, unspecified (2) Hypertension Current Visit: No Status: Chronic per primary Qualifiers: Hypertension type: essential hypertension Qualified Code(s): I10 - Essential (primary) hypertension (3) Diabetes Current Visit: No Status: Chronic per primary Qualifiers: Diabetes mellitus type: type 2 Diabetes mellitus complication status: without complication Diabetes mellitus long term care social worker insulin use: unspecified nursing home insulin use status Qualified Code(s): E11.9 - Type 2 diabetes mellitus without complications Subjective Principal diagnosis: CVA Interval history: 66M evaluated at bedside. patient denies nausea, vomiting, diarrhea, fever, chills, chest pain, shortness of breath. he denies any further problems today. Objective - Constitutional Vitals: Temp Pulse Resp BP Pulse Ox 98.4 F 75 17 151/78 95 06/14/17 08:03 06/14/17 08:03 06/14/17 08:03 06/14/17 08:03 06/14/17 08:03 General appearance: Present: A&O X 3, pleasant, no acute distress, answers questions appropriately - Head Head exam: Present: atraumatic, normocephalic - Eye Eye exam: Present: EOMI, PERRL. Absent: scleral icterus Pupils: Present: PERRL - Extremities Exam Extremities exam: Present: tenderness (tenderness in right knee due to recent surgery. ). Absent: cyanotic, pedal edema - Neurological Exam Sensorimotor examination: Present: intact Motor Examination: Present: grossly full strength in all extremities Motor examination - right side: 5/5: deltoids, biceps, triceps, wrist flexion, wrist extension, requisition approver, hip flexors, tibialis Anterior Motor examination - left side: 5/5: deltoids, biceps, triceps, wrist flexion, wrist extension, hip flexors, tibialis Anterior Sensation intact: Present: intact Reflexes: Brachioradialis: 2+, Patella: 2+ (on left. right could not be assessed due to recent knee surgery), Achilles: 2+ Mental Status Examination: Present: awake, alert, oriented to person, oriented to place, oriented to time, follows commands appropriately, answers questions appropriately, no agnosia, no aphasia, no aproxia Cranial nerve examination: Present: PERRL, visual negron intact, corneal reflexes brisk symmetrically, mastication intact, hearing is intact symmetrically Results - Laboratory Findings CBC and BMP: 06/13/17 05:11 06/13/17 05:11 Abnormal lab findings: Abnormal lab results Hgb 11.6 g/dL (12.9-16.9) L 06/13/17 05:11 Hct 36.8 % (37.5-50.1) L 06/13/17 05:11 MCH 26.3 pg (28.0-33.3) L 06/13/17 05:11 MCHC 31.5 g/dL (31.6-35.5) L 06/13/17 05:11 RDW 14.6 % (11.5-14.5) H 06/13/17 05:11 MPV 9.2 fL (9.4-12.4) L 06/13/17 05:11 Carbon Dioxide 34 mEq/L (23-29) H 06/13/17 05:11 POC Glucose 122 (58-89) H 06/13/17 20:51 Triglycerides 198 mg/dL (< 150) H 06/13/17 05:11 VLDL Cholesterol, Calc 40 mg/dL (< 31) H 06/13/17 05:11 Consult Discharge Plan - Plan Referrals: Ti oBlaños MD [Primary Care Provider] - <Tameka Hand I - Last Filed: 06/14/17 12:43> Date of Encounter: 06/14/17 Assessment and Plan (1) CVA (cerebral vascular accident) Current Visit: Yes Status: Acute Patient was seen and examined his left facial droop is still present but slightly improved as compared to the yesterday, still some slurring of the speech but again improvement noted no other focal motor deficit noted on examination MRI of the brain did not show any acute infarct though clinically patient's symptoms seems to be consistent with acute infarction perhaps in the brainstem lesion less than 2 mm sometimes cannot be localized on MRI scan. Although that had another possibility would be of peripheral seventh nerve palsy but clinically symptoms seems to be more off central than peripheral especially when there is no much involvement of the eyelid neither any decrease in facial creases in the forehead. Sometimes patient could have a small lacunar infarct in the brainstem Isolated facial nerve palsy usually manifests as Aquino's palsy but Lacunar infarct involving the lower mike is a rare cause of solitary infranuclear facial paralysis. 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 MRA of the neck is negative for any critical stenosis Patient was on aspirin has changed to Plavix suggest to continue with overlap of 81 mg aspirin that could be discontinued later after month Continue on blood pressure medications Patient remained stable to discharge from neurology standpoint and follow-up in neurology clinic in 3-4 weeks Objective - Constitutional Vitals: Temp Pulse Resp BP Pulse Ox 97.6 F 88 17 136/78 96 06/14/17 12:16 06/14/17 12:16 06/14/17 12:16 06/14/17 12:16 06/14/17 12:16 Results - Laboratory Findings CBC and BMP: 06/13/17 05:11 06/13/17 05:11 Abnormal lab findings: Abnormal lab results Hgb 11.6 g/dL (12.9-16.9) L 06/13/17 05:11 Hct 36.8 % (37.5-50.1) L 06/13/17 05:11 MCH 26.3 pg (28.0-33.3) L 06/13/17 05:11 MCHC 31.5 g/dL (31.6-35.5) L 06/13/17 05:11 RDW 14.6 % (11.5-14.5) H 06/13/17 05:11 MPV 9.2 fL (9.4-12.4) L 06/13/17 05:11 Carbon Dioxide 34 mEq/L (23-29) H 06/13/17 05:11 POC Glucose 122 (58-89) H 06/13/17 20:51 Triglycerides 198 mg/dL (< 150) H 06/13/17 05:11 VLDL Cholesterol, Calc 40 mg/dL (< 31) H 06/13/17 05:11
--- NOTE | 2017-06-14 16:08 | Discharge Summary ---
Date of Encounter: 06/14/17 Time of Encounter: 11:00 - Discharge Diagnosis (1) TIA (transient ischemic attack) Priority: Primary Status: Acute Qualifiers: Transient cerebral ischemia type: unspecified Qualified Code(s): G45.9 - Transient cerebral ischemic attack, unspecified (2) Status post right knee replacement Priority: Secondary Status: Acute - Discharge Medications Prescriptions: Clopidogrel [Plavix] 75 mg PO DAILY #30 tablet Home Medications: Amitriptyline [Elavil] 25 mg PO BID 04/21/15 [History] Eletriptan HBr [Relpax] 40 mg PO AD PRN 04/21/15 [History] Metformin HCl [Glucophage Xr] 750 mg PO QPM 04/21/15 [History] Multivitamin/Iron/Folic Acid [Centrum Complete Multivit Tab] 1 tab PO QAM [History] [place]-3/Dha/Epa/Fish Oil [Fish Oil Dr 500 mg Softgel] 1,000 mg PO BID 08/16/15 [ History] Omeprazole [PriLOSEC] 20 mg PO BID 08/16/15 [History] Exenatide Microspheres [Bydureon] 2 mg SQ SA 01/03/16 [History] Simvastatin [Zocor] 20 mg PO QPM 01/03/16 [History] Allopurinol [Zyloprim 100 MG] 100 mg PO DAILY PRN 02/14/17 [History] Turmeric Root Extract [Turmeric] 500 mg PO DAILY 02/14/17 [History] Ascorbate Calcium [Vitamin C] 500 mg PO DAILY 05/23/17 [History] Aspirin Enteric Coated [Aspirin EC] 325 mg PO BID #20 tablet.dr 05/23/17 [Rx] Cyanocobalamin (Vitamin B-12) [Vitamin B-12] 100 mcg PO DAILY 05/23/17 [History] DULoxetine [Cymbalta] 30 mg PO DAILY 05/23/17 [History] Ferrous Sulfate [Iron] 325 mg PO DAILY 05/23/17 [History] Losartan Potassium [Cozaar] 50 mg PO DAILY 05/23/17 [History] OxyCODONE Immed Rel [Roxicodone 5 MG] 5 mg PO Q4HR PRN #24 tablet 05/23/17 [Rx] Tizanidine HCl [Zanaflex] 2 mg PO HS PRN 05/23/17 [History] Clopidogrel [Plavix] 75 mg PO DAILY #30 tablet 06/14/17 [Rx] Allergies/Adverse Reactions: 3 Allergy/AdvReac Type Severity Reaction Status Date / Time tramadol AdvReac Itching Verified 06/12/17 14:01 Narcotics AdvReac Itching Uncoded 04/21/15 19:44 Procedures/tests Complete & Pending: Procedures Performed prior 72 hours Category Date Time Status MR angio neck wo/w con [MR] Routine MRI 06/14/17 09:35 Completed MR head/brain wo con [MR] Routine MRI 06/13/17 12:58 Completed EV carotid duplex imaging BI Routine Y 06/13/17 20:51 Completed EV echocardiogram Routine Y 06/13/17 20:50 Completed Date of admission: 06/12/17 13:55 Primary care physician: Ti Bolaños MD Consults: 06/12/17 20:47 Consult to Neurology [CONS] Routine Consulting Provider: [facility] Reason for Consult: TIA Call Completed: Yes 06/13/17 18:28 Consult to Speech Therapy [CONS] Routine Comment: Evaluate, develop and implement POC Reason for Consult: swallow eval for cva/tia Call Completed: No 06/14/17 14:02 Consult to Physical Therapy [CONS] Stat Comment: Evaluate, develop and implement POC Reason for Consult: Possible discharge - Patient Status Disposition: Home, Self-Care Condition: Fair - Discharge Instructions Follow Up With: Ti Bolaños MD [Primary Care Provider] - Tameka Hand MD [Partnered Physician] - 06/25/17 8:00 am Hospital course: Patient is a 66-year-old male with past medical history significant for hypertension, diabetes, and a total right knee surgery on May 23 who presented to the ER on 06/12/17 due to left facial weakness and slurred speech per and family. Patient reported awaking up approximate 5:30 AM the morning of admission without any difficulties. He stated around 8 AM the morning of admission that his told him he had slurred speech. He stated that he did not notice anything wrong with his speech but admitted that he "felt drunk" because he felt "wobbly" with his cane. Patient was brought to the ER for further evaluation and was admitted to medical floor for further medical management and workup. During patients hospital stay, neurology was consulted with recommendations for MRI of the brain which was negative as well as MRA of carotid arteries. Echocardiogram showed LVEF 55% with mild left ventricular diastolic dysfunction and dilated RV with normal function; no PFO with saline contrast injection. Recommendations for continued ASA, Plavix and statin for TIA. She will be discharged to follow up with neurology as an outpatient. - Time Spent with Patient Total time spent providing and/or coordinating discharge services: Less than 30 minutes - Constitutional Vitals: Temp Pulse Resp BP Pulse Ox 97.6 F 88 17 136/78 96 06/14/17 12:16 06/14/17 12:16 06/14/17 12:16 06/14/17 12:16 06/14/17 12:16 General appearance: Present: A&O X 3, pleasant. Absent: no acute distress - Respiratory Respiratory exam: Present: CTAB. Absent: accessory muscle use, rales, rhonchi, wheezes - Cardiovascular Cardiovascular exam: Present: RRR, +S1, +S2. Absent: diastolic murmur, gallop, rubs, systolic murmur
[2017-06-14 16:11] VITALS: BP 125/78
== END 2017-06-14 17:14 | disposition home or self-care (01) ==
LOC: EMEROO 12:24 → 3BNU 12:24 → SUATTDRO 13:55 → 3BNU 14:20
PROVIDERS: ADMIT Internal Medicine; ATTEND Hospitalist